=== PATIENT | female | born 1970 ===

== ENCOUNTER 2022-01-08 21:02 | Inpatient (IN) | payer MEDICAID ==
[~2022-01-08] VITALS: Ht 167.6 cm; Wt 59.1 kg
[2022-01-09] VITALS (7 sets, daily range): BP systolic 129–153; BP diastolic 73–86
--- NOTE | 2022-01-09 00:05 | NUR ---
DR Michael nascimento paged to inform patient arrival to PCU Room 3017A PAGER ID: [phone] MESSAGE: Eitan Priest ! Direct admit from [facility] is here. patient is Gina Echols in room 3[address]A. [phone]. Thank you
[2022-01-09] MEDS ORDERED: acetaminophen 325mg tablet PO PRN ×2 (00:10)
[2022-01-09] MEDS ORDERED: magnesium 4gm in 100ml NS 100 ML IV PRN (00:10)
[2022-01-09] MEDS ORDERED: DEXTROSE 15 GM of carb/4 tabs (each vial/BOTTLE has 4 tablets) PO PRN ×2 (00:10)
[2022-01-09] MEDS ORDERED: dextrose 50%-water 50ml dispensing syringe IV PRN ×2 (00:10)
[2022-01-09] MEDS ORDERED: mag hydrox/Alum hydrox/simeth 30ml oral suspension PO PRN (00:10)
[2022-01-09] MEDS ORDERED: glucagon, human recombinant 1mg kit SUBCUT PRN (00:10)
[2022-01-09] MEDS ORDERED: PERFLUTREN PROTEIN-A MICROSPHR (Optison) 0.22 MG/ML 3ML VIAL IV PRN (00:10)
[2022-01-09] MEDS ORDERED: magnesium 2GM in 50ml NS 50 ML IV PRN (00:10)
[2022-01-09] MEDS ORDERED: potassium Cl 20 mEq SR tablet PO PRN ×2 (00:10)
[2022-01-09] MEDS ORDERED: MESSAGE TO PHARMACY PO ONE (00:10)
[2022-01-09] MEDS ORDERED: potassium CL 10mEq/100ml bag 100 ML IV PRN (00:10)
[2022-01-09] MEDS: normal saline 1000ml 1,000 ML IV SCH (00:10)
[2022-01-09] MEDS ORDERED: ondansetron/PF 4mg/2ml inj IV PRN (00:10)
[2022-01-09] MEDS ORDERED: magnesium hydroxide 30ml (MOM) UD suspension PO PRN (00:10)
[2022-01-09] MEDS ORDERED: morphine 2 MG/ML inj. syringe IV PRN ×2 (00:10)
[2022-01-09] MEDS ORDERED: magnesium Cl slow-release 64mg tablet PO PRN (00:10)
--- NOTE | 2022-01-09 00:50 | NUR ---
Patient presents with clear stools that she has been having for the past 3 days. According to patient she did not take any stool softener nor eaten new foods. Patient denies abdominal pain. Denies everything that could cause her to have diarrhea. patient states she has can't hold the BM but she is not incontinent. states it is strange and new to her. Patient is now transferred to [facility] for possible C-difficile. Unable to collect sample at this time.
[2022-01-09] MEDS: HYDROcodone/acetaminophen 5mg/325mg tablet PO PRN (03:42)
--- NOTE | 2022-01-09 06:43 | NUR ---
Problems reprioritized. Patient report given, questions answered & plan of care reviewed with Ruth EDWARDS.
[2022-01-09 07:40] LABS: C DIFF SPECIMEN=DIARRHEA? ACCEPTABLE; C DIFFICILE TOXINS A&B NEGATIVE (Neg)
[2022-01-09] MEDS: K and/or MAG REPLACEMENT MC SCH ×2 (08:00→19:30)
[2022-01-09] MEDS: vancomycin 125mg/5ml ORAL solution 5ml UD oral syringe PO SCH ×3 (08:23→19:34)
[2022-01-09] MEDS: heparin, porcine 5000 units/ml vial SQ SCH ×2 (08:27→16:20)
[2022-01-09] MEDS: HYDROcodone/acetaminophen 10/325mg tab PO PRN ×3 (08:28→20:06)
[2022-01-09] MEDS: furosemide 40mg/4ml inj IV SCH ×2 (08:29→19:34)
[2022-01-09 10:56] LABS: ALANINE AMINOTRANSFERASE 30 U/L (12-78); ALBUMIN 2.3 G/DL (3.4-5.0); ALBUMIN/GLOBULIN RATIO 0.6 (1.1-1.5); ALKALINE PHOSPHATASE 177 IU/L (46-116); ANION GAP 8 (8-16); ASPARTATE AMINO TRANSFERASE 23 U/L (10-37); BILIRUBIN,TOTAL 0.3 MG/DL (0.1-1.0); BLOOD UREA NITROGEN 9 MG/DL (7-18); BUN/CREATININE RATIO 9.3 (6.6-38.0); CALCIUM 8.2 MG/DL (8.5-10.1); CHLORIDE 107 MMOL/L (99-107); CREATININE 0.97 MG/DL (0.40-0.90); GLUCOSE 232 MG/DL (70-104); SODIUM 142 MMOL/L (135-145); TOTAL CARBON DIOXIDE 27.5 MMOL/L (24-32); TOTAL PROTEIN 6.2 G/DL (6.4-8.2); eGFR 60 ML/MIN
[2022-01-09 11:00] LABS: BASOPHILS % (AUTO) 0.5 % (0-1); EOSINOPHILS # (AUTO) 0.2 X10'3 (0-0.9); EOSINOPHILS % (AUTO) 1.4 % (0-6); HEMATOCRIT 36.1 % (35.0-45.0); HEMOGLOBIN 11.4 g/dl (12.0-16.0); LYMPHOCYTES # (AUTO) 2.3 X10'3 (1.1-4.8); MEAN CORPUSCULAR HEMOGLOBIN 26.8 PG (27.0-31.0); MEAN CORPUSCULAR HGB CONC 31.6 g/dL (33.0-36.5); MEAN CORPUSCULAR VOLUME 84.8 FL (78-98); MEAN PLATELET VOLUME 9.5 FL (7.4-10.4); MONOCYTES # (AUTO) 0.8 X10'3 (0-0.9); MONOCYTES % (AUTO) 7.3 % (2-12); NEUTROPHILS # (AUTO) 7.2 X10'3 (1.8-7.7); NEUTROPHILS % (AUTO) 68.8 % (42-75); PLATELET COUNT 350 X10'3 (140-440); RED BLOOD COUNT 4.25 X10'6 (4.20-5.60); RED CELL DISTRIBUTION WIDTH 14.2 % (11.5-14.5); WHITE BLOOD COUNT 10.4 X10'3 (4.5-11.0)
[2022-01-09] MEDS: insulin Lispro (HumaLOG) vial - multi-dose SQ SCH (13:59)
[2022-01-09] MEDS ORDERED: diphenoxylate/atropine tablet (Lomotil) PO PRN (14:05)
[2022-01-09] MEDS ORDERED: diphenoxylate/atropine tablet (Lomotil) PO ONE (14:05)
--- NOTE | 2022-01-09 15:28 | NUR ---
Paged Dr. Chavez re distended abdomen and cont diarrhea PAGER ID: [phone] MESSAGE: Aruna Onesimo [phone] This patient is distended, do we want to do an xray perhaps of her abdomen? Abdomen is soft and non-tender, but she complaints of pain in the abdomen area. Pt is still reporting having diarrhea. Thanks, April RN ext [phone]
[2022-01-09] MEDS: ipratropium/albuterol 3ml nebule IH PRN (16:34)
--- NOTE | 2022-01-09 19:14 | NUR ---
Problems reprioritized. Patient report given, questions answered & plan of care reviewed with JERRY Clifford.
[2022-01-09] MEDS ORDERED: temazepam 15mg capsule PO PRN (21:00)
[2022-01-09] MEDS: insulin glargine (Lantus) pen - multi-dose SQ SCH (21:28)
[2022-01-10] VITALS (7 sets, daily range): BP systolic 124–165; BP diastolic 52–90
[2022-01-10] MEDS: vancomycin 125mg/5ml ORAL solution 5ml UD oral syringe PO SCH ×4 (02:17→19:27)
[2022-01-10] MEDS: HYDROcodone/acetaminophen 5mg/325mg tablet PO PRN ×2 (02:34→19:32)
[2022-01-10 06:56] LABS: BASOPHILS # (AUTO) 0.1 X10'3 (0-0.2); BASOPHILS % (AUTO) 0.7 % (0-1); EOSINOPHILS # (AUTO) 0.1 X10'3 (0-0.9); EOSINOPHILS % (AUTO) 1.5 % (0-6); HEMATOCRIT 40.3 % (35.0-45.0); HEMOGLOBIN 12.5 g/dl (12.0-16.0); LYMPHOCYTES # (AUTO) 2.3 X10'3 (1.1-4.8); LYMPHOCYTES % (AUTO) 25.2 % (21-51); MEAN CORPUSCULAR HEMOGLOBIN 26.7 PG (27.0-31.0); MEAN CORPUSCULAR HGB CONC 30.9 g/dL (33.0-36.5); MEAN CORPUSCULAR VOLUME 86.3 FL (78-98); MEAN PLATELET VOLUME 9.3 FL (7.4-10.4); MONOCYTES # (AUTO) 0.7 X10'3 (0-0.9); MONOCYTES % (AUTO) 8.1 % (2-12); NEUTROPHILS # (AUTO) 5.9 X10'3 (1.8-7.7); NEUTROPHILS % (AUTO) 64.5 % (42-75); PLATELET COUNT 373 X10'3 (140-440); RED BLOOD COUNT 4.67 X10'6 (4.20-5.60); RED CELL DISTRIBUTION WIDTH 14.5 % (11.5-14.5); WHITE BLOOD COUNT 9.1 X10'3 (4.5-11.0)
[2022-01-10 07:05] LABS: ALANINE AMINOTRANSFERASE 32 U/L (12-78); ALBUMIN 2.5 G/DL (3.4-5.0); ALBUMIN/GLOBULIN RATIO 0.6 (1.1-1.5); ALKALINE PHOSPHATASE 220 IU/L (46-116); ANION GAP 11 (8-16); ASPARTATE AMINO TRANSFERASE 31 U/L (10-37); BILIRUBIN,TOTAL 0.3 MG/DL (0.1-1.0); BLOOD UREA NITROGEN 14 MG/DL (7-18); BUN/CREATININE RATIO 13.5 (6.6-38.0); CALCIUM 8.4 MG/DL (8.5-10.1); CHLORIDE 102 MMOL/L (99-107); CHOL/HDL RATIO 1.9 (0.00-4.99); CHOLESTEROL 173 MG/DL (0-200); CREATININE 1.04 MG/DL (0.40-0.90); GLUCOSE 343 MG/DL (70-104); HDL CHOLESTEROL 89 MG/DL (35-60); LDL CHOLESTEROL 63 MG/DL (50-100); POTASSIUM 4.3 MMOL/L (3.5-5.1); SODIUM 141 MMOL/L (135-145); TOTAL CARBON DIOXIDE 27.8 MMOL/L (24-32); TOTAL PROTEIN 6.6 G/DL (6.4-8.2); TRIGLYCERIDES 104 MG/DL (20-135); eGFR 55 ML/MIN
[2022-01-10] MEDS: ipratropium/albuterol 3ml nebule IH PRN (07:27)
[2022-01-10] MEDS: furosemide 40mg/4ml inj IV SCH ×2 (07:59→19:27)
[2022-01-10] MEDS: heparin, porcine 5000 units/ml vial SQ SCH ×3 (07:59→16:55)
[2022-01-10] MEDS ORDERED: dextrose 50%-water 50ml dispensing syringe IV ONE (08:00)
[2022-01-10] MEDS: K and/or MAG REPLACEMENT MC SCH ×2 (08:00→20:00)
[2022-01-10] MEDS ORDERED: sod chloride 0.9% 10ml flush syringe IV ONE ×2 (08:00)
[2022-01-10] MEDS: insulin Lispro (HumaLOG) vial - multi-dose SQ SCH ×2 (09:25→13:50)
[2022-01-10] MEDS: carVEDilol 3.125mg tablet PO SCH ×2 (09:26→19:28)
[2022-01-10] MEDS: lisinopril 2.5mg tablet PO SCH (09:28)
--- NOTE | 2022-01-10 10:53 | NUR ---
TC from RN stating pt requesting additional food options. Provided pt w/ alternative food list for Carb Controlled/Heart healthy diets and d/w dietary to obtain pt's write-in requests Addendum: 01/10/22 at [address] Amended: Links added.
[2022-01-10] MEDS: HYDROcodone/acetaminophen 10/325mg tab PO PRN ×2 (10:55→16:55)
[2022-01-10] MEDS ORDERED: iohexol 300mg/ml 100ml inj. ONE ×2 (12:13→15:33)
[2022-01-10] MEDS ORDERED: ARIP20TA4 PO (14:37)
[2022-01-10] MEDS ORDERED: GABA100C PO (15:29)
[2022-01-10] MEDS ORDERED: AMOX-580 PO (15:29)
[2022-01-10] MEDS ORDERED: METF-436 PO (15:29)
[2022-01-10] MEDS ORDERED: FURO-150 PO (15:29)
[2022-01-10] MEDS ORDERED: POTA-192 PO (15:29)
[2022-01-10] MEDS ORDERED: OMEP40CA21 PO (15:29)
[2022-01-10] MEDS ORDERED: HYDR-3965 PO (15:29)
[2022-01-10] MEDS ORDERED: ARIP5TAB14 PO (15:29)
[2022-01-10] MEDS ORDERED: BUPR150T8 PO (15:29)
[2022-01-10] MEDS ORDERED: LOSA25TA96 PO (16:04)
--- NOTE | 2022-01-10 17:15 | NUR ---
pt returned to floor from CT scan. Blood sugar had dropped to 23 during procedure. Rapid response had to be called. pt alert on stretcher when she arrived back to the room. blood sugar checked on arrival back to room was 152. Pt immediately started eating her heated up lunch tray. stated she was feeling better. Bp elevated at 165/90, pt stated she was in pain. norco given for pain. will continue to monitor.
--- NOTE | 2022-01-10 18:50 | NUR ---
Problems reprioritized. Patient report given, questions answered & plan of care reviewed with JERRY Clifford.
[2022-01-10] MEDS: insulin glargine (Lantus) pen - multi-dose SQ SCH (21:08)
[2022-01-11] MEDS: heparin, porcine 5000 units/ml vial SQ SCH ×2 (00:31→07:20)
[2022-01-11] MEDS: normal saline 1000ml 1,000 ML IV SCH (00:31)
[2022-01-11 02:00] VITALS: BP 125/76
[2022-01-11] MEDS: vancomycin 125mg/5ml ORAL solution 5ml UD oral syringe PO SCH ×3 (02:00→13:41)
[2022-01-11] MEDS: HYDROcodone/acetaminophen 5mg/325mg tablet PO PRN ×2 (04:31→11:17)
[2022-01-11 05:57] LABS: BASOPHILS % (AUTO) 0.4 % (0-1); EOSINOPHILS # (AUTO) 0.1 X10'3 (0-0.9); EOSINOPHILS % (AUTO) 0.9 % (0-6); HEMATOCRIT 37.6 % (35.0-45.0); LYMPHOCYTES # (AUTO) 1.6 X10'3 (1.1-4.8); LYMPHOCYTES % (AUTO) 19.9 % (21-51); MEAN CORPUSCULAR HEMOGLOBIN 27.1 PG (27.0-31.0); MEAN CORPUSCULAR HGB CONC 31.8 g/dL (33.0-36.5); MEAN CORPUSCULAR VOLUME 85.2 FL (78-98); MEAN PLATELET VOLUME 9.1 FL (7.4-10.4); MONOCYTES # (AUTO) 0.7 X10'3 (0-0.9); MONOCYTES % (AUTO) 8.7 % (2-12); NEUTROPHILS # (AUTO) 5.7 X10'3 (1.8-7.7); NEUTROPHILS % (AUTO) 70.1 % (42-75); PLATELET COUNT 353 X10'3 (140-440); RED BLOOD COUNT 4.41 X10'6 (4.20-5.60); RED CELL DISTRIBUTION WIDTH 14.3 % (11.5-14.5); WHITE BLOOD COUNT 8.2 X10'3 (4.5-11.0)
[2022-01-11 06:00] VITALS: BP 147/84
[2022-01-11 06:19] LABS: ALANINE AMINOTRANSFERASE 30 U/L (12-78); ALBUMIN 2.3 G/DL (3.4-5.0); ALBUMIN/GLOBULIN RATIO 0.6 (1.1-1.5); ALKALINE PHOSPHATASE 184 IU/L (46-116); ANION GAP 8 (8-16); ASPARTATE AMINO TRANSFERASE 33 U/L (10-37); BILIRUBIN,TOTAL 0.3 MG/DL (0.1-1.0); BLOOD UREA NITROGEN 14 MG/DL (7-18); BUN/CREATININE RATIO 14.7 (6.6-38.0); CALCIUM 8.4 MG/DL (8.5-10.1); CHLORIDE 101 MMOL/L (99-107); CREATININE 0.95 MG/DL (0.40-0.90); GLUCOSE 276 MG/DL (70-104); POTASSIUM 3.9 MMOL/L (3.5-5.1); SODIUM 137 MMOL/L (135-145); TOTAL CARBON DIOXIDE 28.1 MMOL/L (24-32); TOTAL PROTEIN 6.1 G/DL (6.4-8.2); eGFR 62 ML/MIN
[2022-01-11] MEDS: furosemide 40mg/4ml inj IV SCH (07:19)
[2022-01-11] MEDS: carVEDilol 3.125mg tablet PO SCH (07:20)
[2022-01-11] MEDS: lisinopril 2.5mg tablet PO SCH (07:20)
[2022-01-11] MEDS: K and/or MAG REPLACEMENT MC SCH (08:00)
[2022-01-11] MEDS ORDERED: gabapentin 100mg capsule PO SCH (08:55)
[2022-01-11] MEDS ORDERED: buPROPion SR 150mg tablet PO SCH (08:55)
[2022-01-11] MEDS ORDERED: losartan 25mg tablet PO SCH (08:56)
[2022-01-11] MEDS ORDERED: ARIPIPRAZOLE 10 MG TABLET PO SCH (08:56)
[2022-01-11] MEDS ORDERED: pantoprazole 40mg Tablet.DR PO SCH (08:57)
[2022-01-11] MEDS ORDERED: potassium chloride 10mEq ER tablet PO SCH (08:58)
[2022-01-11] MEDS: insulin Lispro (HumaLOG) vial - multi-dose SQ SCH ×2 (09:43→13:36)
[2022-01-11 11:00] VITALS: BP 145/82
[2022-01-11] MEDS ORDERED: INSU100I31 SQ (14:35)
[2022-01-11] MEDS ORDERED: FURO40TA4 PO (14:35)
[2022-01-11] MEDS ORDERED: NEED-136 SQ (14:35)
[2022-01-11] MEDS ORDERED: COR3.125T PO (14:35)
[2022-01-11 15:00] VITALS: BP 136/73
== END 2022-01-11 16:53 | disposition home or self-care (01) | DRG 194 ==
LOC: PCU 3S 23:58
PROVIDERS: ADMIT Internal Medicine; ATTEND Family Medicine
PROC: BW211ZZ Computerized Tomography (CT Scan) of Abdomen and Pelvis using Low Osmolar Contrast (ICD-10-PCS; principal; 2022-01-10)
DX: I50.23 Acute on chronic systolic (congestive) heart failure (principal); E11.65 Type 2 diabetes mellitus with hyperglycemia; E87.6 Hypokalemia; F12.90 Cannabis use, unspecified, uncomplicated; F31.9 Bipolar disorder, unspecified; F15.10 Other stimulant abuse, uncomplicated; R19.7 Diarrhea, unspecified; M54.9 Dorsalgia, unspecified; G89.29 Other chronic pain; I07.1 Rheumatic tricuspid insufficiency; Z79.4 Long term (current) use of insulin; Z79.84 Long term (current) use of oral hypoglycemic drugs; Z79.899 Other long term (current) drug therapy; Z91.11 Patient's noncompliance with dietary regimen
CPT/HCPCS: 36415; 74018; 74177; 80053; 80061; 82948; 83605; 85025; 87040; 87081; 87324; 87449; 93005; 93306; 94640; 94760; 94799; 97116; 97161; 97530; G0378; J1644; J1815; J1940; J3490; J7030; Q9967